=== PATIENT | male | born 1970 | race Caucasian/White ===

== ENCOUNTER 2023-06-17 04:11 | Observation (INO) | payer OTHER ==
[~2023-06-17] VITALS: Ht 180.3 cm; Wt 77.3 kg
[2023-06-17] MEDS ORDERED: ZOLO50TA PO (04:16)
[2023-06-17] MEDS: ONDANSETRON 4MG 2ML VIAL IV ONE ×2 (04:32→05:15)
[2023-06-17 04:42] LABS: BASO % 0.2 % (0.0-1.0); EOS # 0.2 10^3/uL (0.0-0.5); HEMATOCRIT 44.2 % (42.0-52.0); HEMOGLOBIN 15.1 g/dl (13.5-17.5); LYMPH # 1.8 10^3/uL (1.5-5.0); LYMPH % 14.5 % (24.0-44.0); MEAN CORPUSCULAR HEMOGLOBIN 31.7 pg (27.0-33.0); MEAN CORPUSCULAR HGB CONC 34.2 g/dl (32.0-36.5); MEAN CORPUSCULAR VOLUME 92.7 fl (80.0-96.0); MONO # 0.7 10^3/uL (0.0-0.8); NEUTROPHILS # 9.4 10^3/uL (1.5-8.5); NEUTROPHILS % 76.9 % (36.0-66.0); PLATELET COUNT, AUTOMATED 329 10^3/uL (150-450); RED BLOOD COUNT 4.77 10^6/uL (4.30-6.10); WHITE BLOOD COUNT 12.3 10^3/uL (4.0-10.0)
[2023-06-17] MEDS: KETOROLAC 30 MG/ML 1ML VIAL IV ONE ×2 (04:43→11:58)
[2023-06-17 05:04] LABS: LIPASE 96 U/L (12-53)
[2023-06-17 05:07] LABS: ALBUMIN 4.2 G/DL (3.2-5.2); ALKALINE PHOSPHATASE 90 U/L (46-116); ALT/SGPT 43 U/L (7.0-40); AST/SGOT 33 U/L (<34); BILIRUBIN,DIRECT 0.1 MG/DL (<0.4); BILIRUBIN,TOTAL 0.5 MG/DL (0.3-1.2); BLOOD UREA NITROGEN 15 MG/DL (9-23); CALCIUM LEVEL 9.6 MG/DL (8.5-10.1); CARBON DIOXIDE LEVEL 25 MMOL/L (20-31); CHLORIDE LEVEL 102 MMOL/L (98-107); CREATININE FOR GFR 0.93 MG/DL (0.70-1.30); GLOMERULAR FILTRATION RATE > 60.0 (>56); GLUCOSE, FASTING 158 MG/DL (60-100); SODIUM LEVEL 139 MMOL/L (136-145); TOTAL PROTEIN 7.8 G/DL (5.7-8.2)
[2023-06-17] MEDS: NS 2,320 ML in IV 1 EA IV ONE (05:18)
[2023-06-17] MEDS ORDERED: MORPHINE 4 MG/ML 1ML VIAL As Ordered ONE (05:24)
[2023-06-17] MEDS: MORPHINE 4 MG/ML 1ML VIAL IV PRN (05:40)
[2023-06-17] MEDS: TAMSULOSIN 0.4 MG CAP PO ONE (06:18)
[2023-06-17] MEDS: PROMETHAZINE 25MG/ML 1ML VIAL IV ONE (07:48)
[2023-06-17] MEDS: HYDROMORPHONE HCL 0.5 MG/ 0.5 ML SYRINGE IV ONE (07:48)
[2023-06-17 09:05] LABS: CK-MB VALUE MASS < 1.0 NG/ML (<3.6)
[2023-06-17 09:07] LABS: CPK CREATINE PHOSPHOKINASE 117 U/L (46-171); MB/CK RELATIVE INDEX 0.85 (< OR =4)
[2023-06-17] MEDS ORDERED: HOME MED LIST COMPLETE! XX SCH (10:10)
[2023-06-17] MEDS: NS 1,000 ML IV SCH ×2 (10:11→13:15)
[2023-06-17 11:54] VITALS: BP 113/58; TEMP 98; O2SAT 97
[2023-06-17] MEDS: NS 1,000 ML IV ONE (11:55)
[2023-06-17 12:36] LABS: CHOLESTEROL LEVEL 162 MG/DL (<200); CHOLESTEROL RISK RATIO 3.96 (<5); HDL CHOLESTEROL 40.9 MG/DL (>40); LDL CHOLESTEROL 106.9 MG/DL (<100); NON-HDL-C 121.1 MG/DL; PSA SCREENING 0.47 NG/ML (< 4.00); TRIGLYCERIDES LEVEL 71 MG/DL (<150)
[2023-06-17] MEDS: ONDANSETRON 4MG 2ML VIAL IV PRN (12:38)
[2023-06-17] MEDS ORDERED: MORPHINE 2 MG/ML 1ML VIAL IV PRN (14:00)
[2023-06-17 15:58] VITALS: BP 99/61; TEMP 98; O2SAT 97
[2023-06-17 17:10] VITALS: BP 107/65
[2023-06-17] MEDS ORDERED: KETOROLAC 30 MG/ML 1ML VIAL IV SCH (18:00)
[2023-06-17 20:08] VITALS: BP 111/63; TEMP 98.9; O2SAT 92
[2023-06-17] MEDS: KETOROLAC 30 MG/ML 1ML VIAL IV SCH (20:34)
[2023-06-17 23:00] VITALS: BP 113/66; TEMP 98.5; O2SAT 95
[2023-06-18] MEDS: FLUTICASONE PROP 0.05% NASAL SPRAY 16 GM (FLONASE) NARES SCH (00:18)
[2023-06-18 04:00] VITALS: BP 102/56; TEMP 98.4; O2SAT 96
[2023-06-18 05:52] LABS: BASO % 0.3 % (0.0-1.0); EOS # 0.2 10^3/uL (0.0-0.5); EOS % 3.2 % (0.0-3.0); HEMATOCRIT 36.8 % (42.0-52.0); LYMPH # 2.5 10^3/uL (1.5-5.0); LYMPH % 33.2 % (24.0-44.0); MEAN CORPUSCULAR HEMOGLOBIN 31.7 pg (27.0-33.0); MEAN CORPUSCULAR HGB CONC 32.9 g/dl (32.0-36.5); MEAN CORPUSCULAR VOLUME 96.3 fl (80.0-96.0); MONO # 0.6 10^3/uL (0.0-0.8); MONO % 8.4 % (2.0-8.0); NEUTROPHILS # 4.1 10^3/uL (1.5-8.5); NEUTROPHILS % 54.5 % (36.0-66.0); PLATELET COUNT, AUTOMATED 238 10^3/uL (150-450); RED BLOOD COUNT 3.82 10^6/uL (4.30-6.10); WHITE BLOOD COUNT 7.5 10^3/uL (4.0-10.0)
[2023-06-18 06:00] LABS: HEMOGLOBIN 12.1 g/dl (13.5-17.5)
[2023-06-18 06:15] LABS: BLOOD UREA NITROGEN 14 MG/DL (9-23); CALCIUM LEVEL 7.8 MG/DL (8.5-10.1); CARBON DIOXIDE LEVEL 25 MMOL/L (20-31); CHLORIDE LEVEL 108 MMOL/L (98-107); GLOMERULAR FILTRATION RATE > 60.0 (>56); GLUCOSE, FASTING 108 MG/DL (60-100); MAGNESIUM LEVEL 1.8 MG/DL (1.8-2.4); SODIUM LEVEL 139 MMOL/L (136-145)
[2023-06-18] MEDS: HEPARIN SOD (PORCINE) 5000UNITS/ML 1ML VIAL/SYRINGE SC SCH (07:57)
[2023-06-18 08:00] VITALS: BP 126/73; TEMP 98.1; O2SAT 97
== END 2023-06-18 17:13 | disposition home or self-care (01) ==
LOC: M ED 04:11 → INTOOBSV 10:37 → M ED INP 10:37 → M PCU 11:43
PROVIDERS: ADMIT Student in an Organized Health Care Education/Training Program; ATTEND Student in an Organized Health Care Education/Training Program
DX: N13.2 Hydronephrosis with renal and ureteral calculous obstruction (principal); K85.90 Acute pancreatitis without necrosis or infection, unspecified; K29.70 Gastritis, unspecified, without bleeding; E87.29 Other acidosis; R00.1 Bradycardia, unspecified; F43.10 Post-traumatic stress disorder, unspecified; Z87.891 Personal history of nicotine dependence; Z79.899 Other long term (current) drug therapy
CPT/HCPCS: 36415; 74018; 74176; 80047; 80048; 80061; 80076; 81001; 82550; 82553; 83605; 83690; 83735; 84484; 85025; 93005; 93041; 93306; 96361; 96374; 96375; 96376; 99285; G0103; G0378; J1170; J1885; J2405; J2550